=== PATIENT | male | born 2000 | race Caucasian/White ===

== ENCOUNTER 2019-10-08 17:17 | Emergency (ER) | payer BC, SELFPAY ==
[2019-10-08 17:24] VITALS: BP 115/64; PULSE 82; RESP 17; TEMP 37.1; O2SAT 97
--- NOTE | 2019-10-08 19:10 | ED.WOUNDLAC ---
HPI - Wound/Laceration General Chief Complaint: Wound/Laceration Stated Complaint: RLL LAC Time Seen by Provider: 10/08/19 17:32 Source: patient Mode of arrival: ambulatory Limitations: no limitations History of Present Illness HPI narrative: Patient is a 18-year-old male who presents to emergency department for evaluation of laceration to the lateral aspect of the right knee patient notes aching pain worse with touch and activity patient notes tetanus is up-to-date patient denies other injuries or complaints injury occurred just prior to arrival patient denies any radicular symptoms or paresthesias. Patient denies fever chills numbness tingling or weakness Related Data Home Medications Medication Instructions Recorded Confirmed duloxetine mg PO 10/08/19 estradiol mg 10/08/19 spironolactone 10/08/19 Allergies Allergy/AdvReac Type Severity Reaction Status Date / Time No Known Allergies Allergy Unverified 10/08/19 17:47 Review of Systems Musculoskeletal: Musculoskeletal: Reports as per HPI Integumentary/Breasts: Skin/Breast: Reports as per HPI Neurologic: Reports as per HPI [facility] Surgical History Surgical History (Updated 10/08/19 @ 19:13 by Zach Caro PA-C) H/O cosmetic surgery Exam Const: General: no acute distress and alert Orientation/consciousness: patient oriented x3 Skin: General skin exam: normal color Other: 4 cm laceration of the lateral aspect of the right knee Neuro: Other: Neurovascularly intact Extrem: Other: Normal range of motion and strength Course Course Emergency Course: Patient in the room in no distress had repair of laceration in the emergency department Vital Signs Vital signs: Vital Signs Temperature 98.8 F 10/08/19 17:24 Pulse Rate 82 10/08/19 17:24 Respiratory Rate 17 10/08/19 17:24 Blood Pressure 115/64 10/08/19 17:24 Pulse Oximetry 97 10/08/19 17:24 Temperature 98.8 F 10/08/19 17:24 Pulse Rate 82 10/08/19 17:24 Respiratory Rate 17 10/08/19 17:24 Blood Pressure 115/64 10/08/19 17:24 Pulse Oximetry 97 10/08/19 17:24 Procedures Laceration Laceration 1: Date: 10/08/19 Time: 19:15 Site: lower extremity Side (If applicable): right Size (cm): 3.5 Description: linear Depth: simple, single layer ====== Skin Level ====== Skin layer closed with: carissa Number of sutures: 6 ====== Subcutaneous Layer ====== ====== Muscle Layer ====== ====== Tendon Layer ====== Dressing: Nonadhesive antibiotic ointment 4 x 4 and Coban placed post procedure MDM - Wound/Laceration MDM Narrative Medical decision making narrative: Patient in the room in no distress aware of case findings treatment plan and diagnosis agreeing to follow-up as directed Discharge Plan Discharge Clinical Impression: Laceration Patient Disposition: Home, Self-Care Condition: Stable Instructions: Antibiotic Form, Laceration (ED) Additional Instructions: Follow-up with primary care in the next 7 days for reevaluation and staple removal Return if symptoms worsen or concerns or any increase in redness swelling pain or fever over 100.5 Follow patient education sheets Prescriptions: No Action estradiol 2 mg tablet RF: 0 spironolactone 50 mg tablet RF: 0 duloxetine 60 mg capsule,delayed release(DR/EC) PO RF: 0 Follow-up/Referrals: Soledad Gu MD [Primary Care Provider] -
[2019-10-08 19:35] VITALS: BP 122/82; PULSE 81; RESP 16; TEMP 36.6; O2SAT 100
== END 2019-10-08 19:36 | disposition home or self-care (01) ==
PROVIDERS: Emergency Provider Emergency Medicine; PCP Pediatrics
DX: S81.011A Laceration without foreign body, right knee, initial encounter (principal); W27.8XXA Contact with other nonpowered hand tool, initial encounter
CPT/HCPCS: 12002; 99282